=== PATIENT | male | born 1985 | race Caucasian/White ===

== ENCOUNTER 2021-01-05 20:18 | Inpatient (IN) | payer SELFPAY ==
[~2021-01-05] VITALS: Ht 180.3 cm; Wt 59.1 kg
[2021-01-05 21:10] LABS: BASO # 0.1 (0.0-0.2); BASO % 0.8 % (0.0-2.0); GRAN % 81.6 % (42.2-75.2); HEMOGLOBIN 11.7 g/dl (13.5-18.0); LYMPH # 0.7 (1.2-3.4); LYMPH % 8.4 % (20.0-51.0); MEAN CELL VOLUME 89 fl (80.0-100.0); MEAN CORPUSCULAR HEMOGLOBIN 31 pg (27.0-31.0); MEAN CORPUSCULAR HGB CONC 35 g/dl (33.0-37.0); MEAN PLATELET VOLUME 10.1 fl (7.4-10.4); MONO # 0.7 (0.1-0.6); MONO % 8.5 % (1.7-9.3); PLATELET COUNT 134 K/mm3 (130-400); RED BLOOD COUNT 3.77 M/mm3 (4.20-5.60); REDCELL DISTRIBUTION WIDTH-CV 13.1 % (11.5-14.5)
[2021-01-05 21:11] LABS: HEMATOCRIT 33.4 % (42.0-52.0)
[2021-01-05 21:23] LABS: ALBUMIN 4.5 gm/dL (3.5-5.0); BILIRUBIN,TOTAL 1.3 mg/dL (0.0-1.0); CALCIUM 9.4 mg/dL (8.4-10.2); CREATININE, serum 0.56 (0.66-1.25); TOTAL PROTEIN 8.1 gm/dL (6.4-8.2)
[2021-01-05 21:40] LABS: PROLACTIN 15.3 ng/mL (3.7-17.9)
[2021-01-05 21:47] LABS: TROPONIN-I 0.078 ng/mL (0.000-0.035)
[2021-01-05 22:46] LABS: TRICYCLIC ANTIDEPRESS URINE NEGATIVE
[2021-01-06 00:45] LABS: COLLECTION METHOD CLEAN CATCH
[2021-01-06 00:51] LABS: MUCOUS Present /lpf; PH 8 (5-8); SQUAMOUS EPITHELIAL 0-2 /hpf; URINE APPEARANCE Clear; URINE BACTERIA None Seen /hpf; URINE BILIRUBIN Negative (NEGATIVE); URINE BLOOD Negative (NEGATIVE); URINE COLOR Yellow; URINE GLUCOSE Negative (NEGATIVE); URINE KETONE Negative (NEGATIVE); URINE LEUKOCYTE ESTERASE Negative (NEGATIVE); URINE NITRATE Negative (NEGATIVE); URINE PROTEIN(semi-quant) Negative (NEGATIVE); URINE RBC 0-2 /hpf; URINE UROBILINOGEN Negative (NEGATIVE)
[2021-01-06 06:23] LABS: BASO # 0.1 (0.0-0.2); BASO % 0.9 % (0.0-2.0); GRAN % 74.8 % (42.2-75.2); HEMOGLOBIN 10.5 g/dl (13.5-18.0); LYMPH # 1.1 (1.2-3.4); LYMPH % 13.9 % (20.0-51.0); MEAN CELL VOLUME 92 fl (80.0-100.0); MEAN CORPUSCULAR HEMOGLOBIN 31 pg (27.0-31.0); MEAN CORPUSCULAR HGB CONC 34 g/dl (33.0-37.0); MEAN PLATELET VOLUME 10.8 fl (7.4-10.4); MONO # 0.8 (0.1-0.6); MONO % 9.8 % (1.7-9.3); PLATELET COUNT 131 K/mm3 (130-400); RED BLOOD COUNT 3.39 M/mm3 (4.20-5.60); REDCELL DISTRIBUTION WIDTH-CV 13.2 % (11.5-14.5)
[2021-01-06 06:34] LABS: CALCIUM 8.3 mg/dL (8.4-10.2); CREATININE, serum 0.48 (0.66-1.25); MAGNESIUM 2.5 mg/dL (1.6-2.3); POTASSIUM 3.3 mmol/L (3.4-5.0)
[2021-01-06 06:36] LABS: HEMATOCRIT 31.2 % (42.0-52.0)
[2021-01-06 07:11] LABS: TROPONIN-I 0.055 ng/mL (0.000-0.035)
[2021-01-06 15:15] VITALS: BP 138/79; PULSE 94; TEMP 98.8
--- NOTE | 2021-01-06 15:45 | NUR ---
PATIENT ADMITTED FROM THE ED FOR ETOH WITHDRAWAL. REPORT RECIEVED FROM PAXTON MILLER. UPON INITIAL ASSESSMENT NORMAL S1 AND S2 SOUNDS PRESENT, RADIAL AND PEDAL PULSES +2 BILATERALLY, PATIENT ALERT BUT ONLY ORIENTATED X2, LUNGS CLEAR TO AUSCULTATION, BOWEL SOUNDS PRESENT IN ALL FOUR QUADRANTS. VSS. MILD TREMOR NOTED. PATIENT C/O A HEADACHE RATED A 5/10 AND SOME ACHING PAIN IN HIS SIDE. PRN TYLENOL GIVEN. NS RUNNING ORDERED. PATIENT DENIES ANY FURTHER NEED AT THIS TIME. CALL LIGHT IN REACH. SEIZURE PRECAUTIONS IN PLACE. FALL PRECAUTIONS IN PLACE.
[2021-01-06 16:05] VITALS: BP 116/77; PULSE 93; TEMP 99.3
[2021-01-06 17:49] VITALS: BP 136/74; PULSE 80; TEMP 99.3
--- NOTE | 2021-01-06 18:00 | NUR ---
PATIENT HAS HAD AN EVENTFUL DAY. PATIENT'S HAS PULLED OUT TWO IV'S. THIS RN ATTEMPTED TO STRESS THE IMPORTANCE OF AN IV WITH NO SUCCESS. NEW IV PLACE IN RIGHT AC, KIMBERLEE WRAP PLACED TO HELP DETER PATIENT FROM REMOVING. LAST CIWA WAS 9. ATIVAN GIVEN ORDERED. PATIENT RESTING IN BED AT THIS TIME. CALL LIGHT IN REACH. SEIZURE PRECAUTIONS IN PLACE. FALL PRECAUTIONS IN PLACE. VSS.
--- NOTE | 2021-01-06 22:52 | NUR ---
PT IN BED. EVENING MEDICAIONS GIVEN. THIS NURSE HAS BEEN GIVING ADIVAN Q2 TO STAY ON TOP OF AGITATION. THE PT HAS GOTTEN OUT OF BED SEVERAL TIMES AND IS DISORIENTED. NEW IV PLACED DUE TO THE PT PULLING HIS LAST ONE, TOLERATING WELL. PT CONTINUALLY REMOVING HIS GOWN AND HIS TELEMETRY. GENERALIZED BRUISING AND ABRASIONS NOTED. PT VERY UNSTEADY ON HIS FEET. WILL CONTINUE TO MONITOR.
[2021-01-07 00:21] VITALS: BP 143/84; PULSE 96; TEMP 98.6
[2021-01-07 05:23] VITALS: BP 124/86; PULSE 72; TEMP 97.6
[2021-01-07 06:32] LABS: CALCIUM 9.2 mg/dL (8.4-10.2); CREATININE, serum 0.43 (0.66-1.25); MAGNESIUM 1.9 mg/dL (1.6-2.3)
[2021-01-07 06:37] LABS: POTASSIUM 2.8 mmol/L (3.4-5.0)
--- NOTE | 2021-01-07 07:01 | NUR ---
PT HAD AN EVENTFUL NIGHT. PT VERY AGITATED SO THIS NURSE CALLED LI HARDEN. SHE INSTRUCTED ME TO GIVE ADIVAN 4MG. PT WAS REFUSING ADIVAN AND CLAIMED THAT I WAS DRUGGING HIM AND HE DIDN'T KNOW WHERE HE WAS OR WHAT HE WAS DOING HERE. THIS NURSE ATTEMPTED TO CALM PT DOWN BUT HE WAS BECOMING INCREASINGLY AGITATED. AT THIS POINT SCURITY AND DURABILITY ENGINEER WERE CALLED. WE WERE ABLE TO ADMINISTER ADIVAN TO PT BUT HE WAS UNABLE TO CALM DOWN. PT RAN OUT INTO THE BAHENA AND STARTED GRABBBING THINGS. FELISA FROM [employer] INSTRUCTED HIM TO STOP BECAUSE HE COULD BE CONTAMINATING OBJECTS. AT THIS POINT HE STARTED BANGING ON THE DOORS OF OTHER PATIENTS AND WAS BECOMING DISRUPTIVE. WE WERE ABLE TO CALM HIM DOWN ENOUGH TO GO TO HIS ROOM. LI HARDEN CAME UP TO THE UNIT AT THIS TIME AND SPOKE WITH HIM. DURING THIS HE TOLD HER THAT IF HE LEFT HE WOULD DRINK HIMSELF TO OR DIES IN A "FIREY CAR WRECK". THIS NURSE WAS INSTRUCTED TO GIVE PT 10MG OF VALUM WELL 4MG OF ADIVAN Q30MIN WHILE AGITATED. ALL GIVEN AND PT WAS STILL VERY ACTIVE, LEAVING HIS ROOMS MULTIPLE TIMES AFTER THIS. SECURITY STAYING ON THE UNIT TO KEEP AN EYE ON HIM FOR A LONG PERIOD OF TIME. WILL CONTINUE TO MONITOR.
--- NOTE | 2021-01-07 07:31 | NUR ---
PT HAD TWO FALLS THROUGHOUT THE NIGHT WHILE HE WAS AGITATED. BOTH TIMES HE FELL ON HIS KNEES AND DID NOT HIT HIS HEAD. VITAL SIGNS WERE STABLE FOLLOWING EACH FALL AND PT DENIED ANY DIZZINESS OR PAIN OTHER THAN IN HIS KNEES. PASSED ON TO PAXTON MALDONADO.
[2021-01-07 09:00] VITALS: BP 121/91; PULSE 90; TEMP 98.3
[2021-01-07] MEDS ORDERED: MULTIPLE VITAMI1 TA5 PO (13:06)
[2021-01-07] MEDS ORDERED: THIAMINE 1100 MG/TAB PO (13:06)
[2021-01-07] MEDS ORDERED: FOLIC ACID 11 MG/TA1 PO (13:06)
[2021-01-07] MEDS ORDERED: VALIUM 5MG T5 MG/TAB PO (13:07)
[2021-01-07] MEDS ORDERED: K-TAB20 PO (13:09)
[2021-01-07] MEDS ORDERED: MAG-OX 400400 MG/TAB PO (13:12)
[2021-01-07] MEDS ORDERED: ASPIRIN 81M81 MG/TA2 PO (13:14)
--- NOTE | 2021-01-07 14:28 | NUR ---
ordnance equipment worker met with patient and patient is unable to recall how he got to [facility] from [place]. Patient states his celso last week in [place] and is unable to provide any family information or where he will go upon discharge. Worker called a family member that had inquired about him and confirmed his celso's brother lives in [facility] and will help patient upon discharge. Elijah Dobson can be reached at [phone] to assist with patient's discharge.
[2021-01-07 15:31] VITALS: BP 126/76; PULSE 83; TEMP 98.5
--- NOTE | 2021-01-07 16:09 | NUR ---
Patient will be screened by [facility]. Worker contacted [facility] unit and gave a referral to complete a screen.
--- NOTE | 2021-01-07 20:00 | NUR ---
At time of assessment, patient is alert and confused. He is currently walking in/out of the room, under staff supervision, looking for cigarettes. He is easily redirected and does not appear agitated at this time; he is definitely anxious but returns to his room briefly when asked. He denies pain and, other than detox symptoms, assessment is WNL. One-to-one sitter, Rudi, will be with patient throughout the shift to ensure safety. Will continue to monitor.
[2021-01-07 20:04] VITALS: BP 131/86; PULSE 79; TEMP 98.2
--- NOTE | 2021-01-07 22:50 | NUR ---
Patient contacts sister, Neeta at this time and speaks with her on the phone. Neeta requests to speak with this RN, who gives her an update on patient's status. Sister is in tears, as she is embarrassed for and worried about patient's actions. The common symptoms of alcohol withdrawal, in addition to treatment, are reviewed with her. Her number is added to patient's chart for future reference. Patient still pacing about room/hallway at times but is napping intermittently and is easily redirected. Comfort measures provided.
[2021-01-08] VITALS (11 sets, daily range): BP systolic 116–146; BP diastolic 67–100; PULSE 66–99; TEMP 97.6–99.2
--- NOTE | 2021-01-08 01:44 | NUR ---
Karla from [facility] called with update. Pop declined, Jose is currently reviewing. She is waiting to hear back from Jose - if Jose refuses, then it will be [facility] for placement.
--- NOTE | 2021-01-08 02:22 | NUR ---
Patient currently sleeping in bed. He has been resting for the last 3-4 hours, with occassional trips to the bathroom. Sitter still in place.
[2021-01-08 07:59] LABS: BASO # 0.1 (0.0-0.2); BASO % 1.5 % (0.0-2.0); EOS # 0.1 (0.0-0.7); EOS % 1.8 % (0-4.0); GRAN # 4.5 (1.4-6.5); GRAN % 62.2 % (42.2-75.2); HEMOGLOBIN 11.7 g/dl (13.5-18.0); LYMPH # 1.8 (1.2-3.4); LYMPH % 24.7 % (20.0-51.0); MEAN CELL VOLUME 93 fl (80.0-100.0); MEAN CORPUSCULAR HEMOGLOBIN 31 pg (27.0-31.0); MEAN CORPUSCULAR HGB CONC 33 g/dl (33.0-37.0); MEAN PLATELET VOLUME 12.7 fl (7.4-10.4); MONO # 0.7 (0.1-0.6); PLATELET COUNT 151 K/mm3 (130-400); RED BLOOD COUNT 3.82 M/mm3 (4.20-5.60); REDCELL DISTRIBUTION WIDTH-CV 13.1 % (11.5-14.5)
[2021-01-08 08:02] LABS: ALBUMIN 4.4 gm/dL (3.5-5.0); BILIRUBIN,TOTAL 1.7 mg/dL (0.0-1.0); CALCIUM 9.5 mg/dL (8.4-10.2); CREATININE, serum 0.46 (0.66-1.25); POTASSIUM 3.3 mmol/L (3.4-5.0); TOTAL PROTEIN 7.8 gm/dL (6.4-8.2)
[2021-01-08 08:10] LABS: HEMATOCRIT 35.5 % (42.0-52.0)
--- NOTE | 2021-01-09 08:09 | NUR ---
Assessment completed, alert/ oriented, vital signs stable, denies pain or discomfort, reports "still feels a little shaky"/ mild tremors are felt, he is tolerating PO intake without N/V but reporst lack of appetite, he is drinking a fair amount of fluids, CIWA 1-4 overnight and this morning, he is not on telemetry as he was refusing to wear it but he still has active orders/ I will discuss with if this is needed or if we can D/C order, he also has no IV access, his cognition is much improved he is cooperative and understands the plan of care, again I will discuss plan of care with this morning and adjust as needed
[2021-01-09 08:19] VITALS: BP 125/74; PULSE 69; TEMP 98
[2021-01-09 09:08] LABS: CALCIUM 9.6 mg/dL (8.4-10.2); CREATININE, serum 0.52 (0.66-1.25); POTASSIUM 3.5 mmol/L (3.4-5.0)
[2021-01-09 12:23] VITALS: BP 116/89; PULSE 81; TEMP 98.2
[2021-01-09 17:20] VITALS: BP 128/79; PULSE 70; TEMP 99.3
[2021-01-09 19:36] VITALS: BP 131/86; PULSE 77; TEMP 98.3
--- NOTE | 2021-01-09 19:43 | NUR ---
Assessment complete. Patient is currently awake in bed, watching TV. He is alert and oriented with no complaints of pain. He is being very pleasant and cooperative. Assessment is WNL. Patient requests sleep aid at 2100. [address]. Will continue to monitor.
[2021-01-09 21:35] VITALS: BP 125/85; PULSE 73; TEMP 98.9
[2021-01-10 08:07] VITALS: BP 125/59; PULSE 85; TEMP 98.5
--- NOTE | 2021-01-10 08:54 | NUR ---
Assessment completed, alert/oriented, vital signs have been stable, patient denies any pain or discomfort, CIWA scores of 2-3, he is cooperative and behaviors appropriate, suicide p/c in place and patient is still on list for involuntary inpatient psych admission, he denies needs at this time and understands plan of care
[2021-01-10 12:10] VITALS: BP 111/71; PULSE 72; TEMP 98.6
[2021-01-10 16:57] VITALS: BP 131/75; PULSE 69; TEMP 99.2
[2021-01-10 19:38] VITALS: BP 134/77; PULSE 79; TEMP 99.1
--- NOTE | 2021-01-10 20:52 | NUR ---
Patient assessed around 2039. Alert and oriented, and able to make needs known. Denies having pain and discomfort. No IV access. Denies SOB and dyspnea. Has occasional moist cough. LS CTA. Respirations even and unlabored. HRR. Capillary refill less than 3 seconds. Non-tenting skin turgor. BSAx4. Abdomen soft and non-tender. No edema. One-on-one sitter. Patient voices no questions, needs, or concerns at this time. Watching TV in recliner.
[2021-01-10 23:25] VITALS: BP 102/49; PULSE 72; TEMP 98.7
[2021-01-11 03:32] VITALS: BP 122/76; PULSE 72; TEMP 98.7
--- NOTE | 2021-01-11 05:45 | NUR ---
Patient has been resting in bed with call light within reach. Voices no questions, needs, or concerns at this time. Continues to be 1:1 sitter.
--- NOTE | 2021-01-11 07:06 | NUR ---
0645- Pt. up to BR to void;Steady gait;wants to sleep longer then eat later. no c/o, just tired. Rests quietly in bed.
[2021-01-11 09:27] VITALS: BP 111/81; PULSE 89; TEMP 98.3
--- NOTE | 2021-01-11 10:13 | NUR ---
Patient standing in doorway, asking for his sisters' phone numbers. This RN told the patient we would do medications and his assessment before calling his sisters. [facility] as long as his covid test comes back negative. Patient was swabbed and lab was collected.
[2021-01-11 11:40] VITALS: BP 111/79; PULSE 80; TEMP 97.9
--- NOTE | 2021-01-11 13:30 | NUR ---
Patient sitting in recliner watching television at this time. Has no complaints. This RN is waiting to find out if/when patient will be leaving for OSH.
--- NOTE | 2021-01-11 13:42 | NUR ---
HS called Gerald to request I contact juan to get a rescreening done, because [facility] doesn't think he needs to come to them. Gerald faxed over updated notes to [phone]. Juan.
[2021-01-11 15:59] VITALS: BP 117/82; PULSE 79; TEMP 98.2
[2021-01-11 16:49] VITALS: BP 125/80; PULSE 66; TEMP 98.2
--- NOTE | 2021-01-11 16:57 | NUR ---
Patient complained of mild back pain, he believes it to be from how he was sitting in the chair.
--- NOTE | 2021-01-11 17:29 | NUR ---
Melter Supervisor Oxygen Furnace, Tuber Machine Cutter, called [facility] requesting an update; facility received the fax/patient summary and updates from our in house bilingual social worker earlier in the shift; to send to their appropriate republican and confirmed pt will be rescreened prior to 1900 this PM; service writer advisor gave them Tuber Machine Cutter's contact information.
--- NOTE | 2021-01-11 18:18 | NUR ---
[facility] is currently visiting with the patient.
[2021-01-11 20:20] VITALS: BP 122/84; PULSE 79; TEMP 98
--- NOTE | 2021-01-11 22:22 | NUR ---
At beginning of shift, PMH recommended to D/C 1:1 sitter. Gave options of patient to go to [facility] with girlfriend's broth and fiance (Malka), or for him to go to the crisis stabilization unit (CSU) for a few days. PMH was unable to get in touch of Malka, and left message to call us back. Called back to this nurse around 2029. Stated that they felt a little overwhelmed and wanted more information on how the discharge would work, as well as following up outpatient. Wanted patient to stay one more night and have a meeting with doctors tomorrow. This nurse called Sindhu, and given update, and given Elijah's phone number to call him. Issac called this nurse at 2114 and stated to go ahead and call CSU to come get patient as family was not comfortable taking patient at this time. Asked if they wanted patient to take HS medications prior to discharge, and they said no. Called Sindhu for D/C orders, and went over decision and discharge instructions with patient. Patient very upset about decision. CSU here to worm picker patient at 2210.
== END 2021-01-11 22:10 | DRG 100 ==
LOC: COL.ER 20:18 → EDBD 20:20 → MEDICAL 01-06 12:36
PROVIDERS: Internal Medicine; Nurse Practitioner Primary Care; Physician Assistant; Student in an Organized Health Care Education/Training Program; ADMIT Student in an Organized Health Care Education/Training Program
PROC: HZ2ZZZZ Detoxification Services for Substance Abuse Treatment (ICD-10-PCS; principal; 2021-01-06)
DX: G40.909 Epilepsy, unspecified, not intractable, without status epilepticus (principal); I21.A1 Myocardial infarction type 2; G93.41 Metabolic encephalopathy; F10.239 Alcohol dependence with withdrawal, unspecified; E87.1 Hypo-osmolality and hyponatremia; E87.6 Hypokalemia; E83.42 Hypomagnesemia; R00.0 Tachycardia, unspecified; R50.9 Fever, unspecified; F32.9 Major depressive disorder, single episode, unspecified; Z20.822 Contact with and (suspected) exposure to COVID-19; D64.9 Anemia, unspecified; R74.01 Elevation of levels of liver transaminase levels; F17.210 Nicotine dependence, cigarettes, uncomplicated
CPT/HCPCS: 99223-AI; 99231-AI; 99232-AI; 99239; J1650; J2060; J2543; J3411; J3475; J3480; J7030

== ENCOUNTER 2021-03-08 15:51 | Emergency (ER) | payer SELFPAY ==
[~2021-03-08] VITALS: Ht 172.7 cm; Wt 77.3 kg
[~2021-03-08 15:51] MED LIST: ASPIRIN 81M81 MG/TA2 PO; FOLIC ACID 11 MG/TA1 PO; K-TAB20 PO; MAG-OX 400400 MG/TAB PO; MULTIPLE VITAMI1 TA5 PO; THIAMINE 1100 MG/TAB PO; VALIUM 5MG T5 MG/TAB PO
[2021-03-08 16:26] LABS: BASO # 0.1 K/mm3 (0.0-0.2); EOS % 0.4 % (0-4.0); GRAN # 6.9 K/mm3 (1.4-6.5); GRAN % 67.9 % (42.2-75.2); HEMATOCRIT 42.1 % (42.0-52.0); HEMOGLOBIN 14.3 g/dl (13.5-18.0); LYMPH # 2.6 K/mm3 (1.2-3.4); LYMPH % 25.5 % (20.0-51.0); MEAN CELL VOLUME 91 fl (80.0-100.0); MEAN CORPUSCULAR HEMOGLOBIN 31 pg (27.0-31.0); MEAN CORPUSCULAR HGB CONC 34 g/dl (33.0-37.0); MEAN PLATELET VOLUME 9.8 fl (7.4-10.4); MONO # 0.5 K/mm3 (0.1-0.6); MONO % 4.8 % (1.7-9.3); PLATELET COUNT 202 K/mm3 (130-400); RED BLOOD COUNT 4.62 M/mm3 (4.20-5.60)
[2021-03-08 16:41] LABS: COLLECTION METHOD CLEAN CATCH
[2021-03-08 16:48] LABS: ALANINE AMINOTRANSFERASE 49 U/L (0-55); ALBUMIN 4.2 gm/dL (3.5-5.0); ALKALINE PHOSPHATASE 127 U/L (40-150); ANION GAP 14 mmol/L (7-16); AST,SGOT 59 U/L (5-34); BILIRUBIN,TOTAL 0.3 mg/dL (0.2-1.2); BLOOD UREA NITROGEN 7 mg/dL (9-21); CALCIUM 9.3 mg/dL (8.4-10.2); CARBON DIOXIDE 24 mmol/L (22-29); CHLORIDE 108 mmol/L (98-107); CREATININE, serum 0.79 mg/dL (0.72-1.25); GLUCOSE 110 mg/dL (70-99); POTASSIUM 3.5 mmol/L (3.5-4.5); SODIUM 146 mmol/L (136-145); TOTAL PROTEIN 7.9 gm/dL (6.2-8.1)
[2021-03-08 16:50] LABS: PH 6 (5-8); SQUAMOUS EPITHELIAL None Seen /hpf; URINE APPEARANCE Clear; URINE BACTERIA None Seen /hpf; URINE BILIRUBIN Negative (NEGATIVE); URINE BLOOD Negative (NEGATIVE); URINE COLOR Colorless; URINE GLUCOSE Negative (NEGATIVE); URINE KETONE Negative (NEGATIVE); URINE LEUKOCYTE ESTERASE Negative (NEGATIVE); URINE NITRATE Negative (NEGATIVE); URINE PROTEIN(semi-quant) Negative (NEGATIVE); URINE RBC 0-2 /hpf; URINE UROBILINOGEN Negative (NEGATIVE)
[2021-03-08 16:50] LABS: ACETAMINOPHEN < 1.0 ug/mL (10-30); SALICYLATE < 5.0 mg/dL (15.0-30.0)
[2021-03-08 16:53] LABS: ALCOHOL(ethanol),MEDICAL 516 mg/dL (0-10)
[2021-03-08 17:00] LABS: TRICYCLIC ANTIDEPRESS URINE NEGATIVE
[2021-03-09 09:30] VITALS: BP 125/77; PULSE 85
== END 2021-03-09 20:01 | disposition home or self-care (01) ==
LOC: COL.ER 15:51
PROVIDERS: Emergency Medicine
DX: T42.4X2A Poisoning by benzodiazepines, intentional self-harm, initial encounter (principal); F10.129 Alcohol abuse with intoxication, unspecified; Y90.8 Blood alcohol level of 240 mg/100 ml or more; Z86.69 Personal history of other diseases of the nervous system and sense organs
CPT/HCPCS: J1630